=== PATIENT | male | born 1950 | race Caucasian/White ===

== ENCOUNTER → 2017-02-06 | Outpatient (CLI) | payer MEDICARE ==
[~2017-02-06] MED LIST: REGADENOSON 0.4 MG/5 ML SYRINGE ONE
== END | disposition home or self-care (01) ==
LOC: CFH 07:30
PROVIDERS: ATTEND Internal Medicine Cardiovascular Disease
DX: I51.7 Cardiomegaly (principal); I65.23 Occlusion and stenosis of bilateral carotid arteries; I35.0 Nonrheumatic aortic (valve) stenosis; I10 Essential (primary) hypertension; E11.9 Type 2 diabetes mellitus without complications; Z82.49 Family history of ischemic heart disease and other diseases of the circulatory system
CPT/HCPCS: 93306; 93880; J2785

== ENCOUNTER 2017-02-27 10:48 | Observation (INO) | payer MEDICARE ==
[2017-02-26 10:40] VITALS: BP 122/80
[2017-02-26 11:16] LABS: HEMATOCRIT 46.5 % (39.2-51.8); HEMOGLOBIN 15.9 g/dL (13.7-18.0); WHITE BLOOD COUNT 10.4 x10^3/uL (3.4-10)
[2017-02-26 11:29] LABS: BLOOD UREA NITROGEN 17 mg/dL (7-18)
[~2017-02-27] VITALS: Ht 175.3 cm; Wt 97.8 kg
[~2017-02-27 10:48] MED LIST changes: +ASPI-621 PO; +DICL100G19 TP; +ESCI20TA PO; +ISOS60TA36 PO; +LISI1TAB7 PO; +METF500T27 PO; +METO50TA82 PO; +MULT-516 PO; +PANT40TA5 PO; -REGADENOSON 0.4 MG/5 ML SYRINGE ONE; +ROSU20TA PO; +TAMS-11 PO
[2017-02-27] MEDS ORDERED: LIDOCAINE 2%, 20ML ONE (13:12)
[2017-02-27] MEDS ORDERED: MIDAZOLAM 1 MG/ML, 5ML ONE (13:12)
[2017-02-27] MEDS ORDERED: FENTANYL PF 100 MCG/2ML ONE ×2 (13:12→13:58)
[2017-02-27] MEDS ORDERED: VERAPAMIL 2.5 MG/ML, 2ML ONE (13:22)
[2017-02-27] MEDS ORDERED: HEPARIN 1,000 UNITS/ML, 10ML ONE (13:22)
[2017-02-27] MEDS ORDERED: TICAGRELOR 90 MG TABLET ONE (13:48)
[2017-02-27] MEDS ORDERED: BIVALIRUDIN 250 MG ONE (13:49)
[2017-02-27 15:03] VITALS: BP 113/70
[2017-02-27] MEDS: SODIUM CHLORIDE 0.9% 1,000 ML IV SCH (18:12)
[2017-02-27 18:47] VITALS: BP 129/81
[2017-02-27] MEDS: TICAGRELOR 90 MG TABLET PO SCH (20:39)
[2017-02-27] MEDS: METOPROLOL TARTRATE 50 MG TABLET PO SCH (20:40)
[2017-02-27] MEDS ORDERED: ATORVASTATIN 40 MG TABLET PO SCH (21:00)
[2017-02-27] MEDS ORDERED: metFORMIN XR 500 MG TAB.ER.24H PO SCH (21:00)
[2017-02-27] MEDS ORDERED: TEMPLATE NON-FORMULARY MED. (Rosuvastatin Calcium** (Crestor**) 20 MG) PO SCH (21:00)
[2017-02-28 00:11] VITALS: BP 139/77
[2017-02-28] MEDS: SODIUM CHLORIDE 0.9% 1,000 ML IV SCH ×2 (01:59→09:19)
[2017-02-28 05:21] LABS: BLOOD UREA NITROGEN 20 mg/dL (7-18)
[2017-02-28 07:00] VITALS: BP 147/80
[2017-02-28] MEDS ORDERED: TICA90TA PO (08:12)
[2017-02-28] MEDS ORDERED: CITALOPRAM 20 MG TABLET PO SCH (09:00)
[2017-02-28] MEDS ORDERED: HYDROCHLOROTHIAZIDE 25 MG TABLET PO SCH (09:00)
[2017-02-28] MEDS ORDERED: TEMPLATE NON-FORMULARY MED. (Escitalopram Oxalate** 20 MG) PO SCH (09:00)
[2017-02-28] MEDS ORDERED: MULTIVITAMIN 1 TABLET PO SCH (09:00)
[2017-02-28] MEDS ORDERED: TAMSULOSIN 0.4 MG CAP.ER.24H PO SCH (09:00)
[2017-02-28] MEDS ORDERED: PANTOPROZOLE 40MG TABLET PO SCH (09:00)
[2017-02-28] MEDS ORDERED: LISINOPRIL 20 MG TABLET PO SCH (09:00)
[2017-02-28] MEDS ORDERED: ISOSORBIDE MONONITRATE ER 60 MG TABLET PO SCH (09:00)
[2017-02-28] MEDS ORDERED: TEMPLATE NON-FORMULARY MED. (Lisinopril/Hydrochlorothiazide** (Lisinopril-Hctz 20-25 Mg Ta PO SCH (09:00)
[2017-02-28] MEDS ORDERED: ASPIRIN 81 MG TABLET EC PO SCH ×2 (09:00)
[2017-02-28] MEDS: TICAGRELOR 90 MG TABLET PO SCH (09:18)
[2017-02-28] MEDS: METOPROLOL TARTRATE 50 MG TABLET PO SCH (09:19)
== END 2017-02-28 11:04 | disposition home or self-care (01) ==
LOC: CACL 10:48 → 5SO 15:11 → CACL 17:59 → 5SO 17:59 → DCLOUNGE 02-28 10:52
PROVIDERS: ADMIT Internal Medicine Cardiovascular Disease; ATTEND Internal Medicine Cardiovascular Disease
DX: I25.10 Atherosclerotic heart disease of native coronary artery without angina pectoris (principal); I10 Essential (primary) hypertension; E78.5 Hyperlipidemia, unspecified; E11.9 Type 2 diabetes mellitus without complications; E78.2 Mixed hyperlipidemia; R93.1 Abnormal findings on diagnostic imaging of heart and coronary circulation
CPT/HCPCS: 36415; 80048; 82040; 85025; 93458; 99156; 99157; C1725; C1769; C1874; C1894; C9600; G0378; J0583; J1644; J2250; J3010; J3490; Q9967

== ENCOUNTER 2017-03-03 04:09 | Inpatient (IN) | payer MEDICARE ==
[~2017-03-03] VITALS: Ht 175.3 cm; Wt 102.2 kg
[~2017-03-03 04:09] MED LIST changes: +TICA90TA PO
[2017-03-03] MEDS ORDERED: ASPIRIN 81 MG TABLET CHEW PO ONE (05:00)
[2017-03-03] MEDS ORDERED: SODIUM CHLORIDE FLUSH 10ML SYR IVF ONE (05:00)
[2017-03-03] MEDS ORDERED: ASPIRIN 81 MG TABLET CHEW ONE (05:05)
[2017-03-03] MEDS ORDERED: TICA90TA PO (05:21)
[2017-03-03 05:41] LABS: BLOOD UREA NITROGEN 17 mg/dL (7-18)
[2017-03-03 05:47] LABS: ASPARTATE AMINO TRANSFERASE 17 U/L (15-37)
[2017-03-03 05:52] LABS: IS PT STATUS REG ER OR PRE ER? YES
[2017-03-03 05:57] LABS: HEMATOCRIT 47.5 % (39.2-51.8); HEMOGLOBIN 16.1 g/dL (13.7-18.0)
[2017-03-03] MEDS ORDERED: HEPARIN 5,000 UNITS/ML, 1ML ONE (10:16)
[2017-03-03] MEDS ORDERED: HEPARIN 25,000 UNITS/500ML PMX 500 ML ONE (10:16)
[2017-03-03] MEDS: ASPIRIN 81 MG TABLET EC PO SCH (10:20)
[2017-03-03] MEDS ORDERED: HEPARIN 5,000 UNITS/ML, 1ML IV ONE ×2 (11:00→16:00)
[2017-03-03] MEDS ORDERED: HEPARIN 25,000 UNITS/500ML PMX 500 ML IV PRN ×2 (11:00→16:00)
[2017-03-03] MEDS ORDERED: HEPARIN 5,000 UNITS/ML, 1ML IV PRN (11:00)
[2017-03-03 11:45] LABS: IS PT STATUS REG ER OR PRE ER? YES
[2017-03-03] MEDS ORDERED: SODIUM CHLORIDE 0.9% 1,000 ML IV SCH (11:53)
[2017-03-03] MEDS ORDERED: BISACODYL 10 MG SUPP PR PRN (12:00)
[2017-03-03] MEDS ORDERED: ENALAPRILAT 1.25 MG/ML, 2ML IVPush PRN (12:00)
[2017-03-03] MEDS ORDERED: hydrALAzine 20 MG/ML, 1ML IVPush PRN (12:00)
[2017-03-03] MEDS ORDERED: morphine SULFATE 10 MG/ML, 1ML IVPush PRN (12:00)
[2017-03-03] MEDS ORDERED: ONDANSETRON 2MG/ML, 2ML IVPush PRN (12:00)
[2017-03-03] MEDS ORDERED: ACETAMINOPHEN 325 MG TABLET PO PRN (12:00)
[2017-03-03] MEDS ORDERED: POLYETHYLENE GLYCOL 17 GM PACKET PO PRN (12:00)
[2017-03-03] MEDS ORDERED: OXYcodone IR 5MG TABLET PO PRN (12:00)
[2017-03-03 15:17] VITALS: BP 129/76
[2017-03-03] MEDS: CITALOPRAM 20 MG TABLET PO SCH (15:26)
[2017-03-03] MEDS: TAMSULOSIN 0.4 MG CAP.ER.24H PO SCH (15:26)
[2017-03-03] MEDS: TICAGRELOR 90 MG TABLET PO SCH ×2 (15:27→20:49)
[2017-03-03 17:11] LABS: IS PT STATUS REG ER OR PRE ER? NO
[2017-03-03] MEDS: HEPARIN 5,000 UNITS/ML, 1ML IV PRN (17:28)
[2017-03-03 19:54] VITALS: BP 129/78
[2017-03-03] MEDS: METOPROLOL TARTRATE 50 MG TABLET PO SCH (20:48)
[2017-03-03] MEDS: ATORVASTATIN 40 MG TABLET PO SCH (20:48)
[2017-03-03] MEDS ORDERED: metFORMIN XR 500 MG TAB.ER.24H PO SCH (21:00)
[2017-03-04 00:17] LABS: IS PT STATUS REG ER OR PRE ER? NO
[2017-03-04] MEDS: HEPARIN 5,000 UNITS/ML, 1ML IV PRN (02:19)
[2017-03-04 02:41] VITALS: BP 130/84
[2017-03-04 05:16] LABS: HEMATOCRIT 45.7 % (39.2-51.8); HEMOGLOBIN 15.3 g/dL (13.7-18.0); WHITE BLOOD COUNT 8.9 x10^3/uL (3.4-10)
[2017-03-04 05:19] LABS: ASPARTATE AMINO TRANSFERASE 16 U/L (15-37); BLOOD UREA NITROGEN 19 mg/dL (7-18)
[2017-03-04 07:54] VITALS: BP 131/81
[2017-03-04] MEDS ORDERED: TEMPLATE NON-FORMULARY MED. (Lisinopril/Hydrochlorothiazide** (Lisinopril-Hctz 20-25 Mg Ta PO SCH (09:00)
[2017-03-04] MEDS: ASPIRIN 81 MG TABLET EC PO SCH (09:30)
[2017-03-04] MEDS: TICAGRELOR 90 MG TABLET PO SCH ×2 (09:30→21:08)
[2017-03-04] MEDS: CITALOPRAM 20 MG TABLET PO SCH (09:30)
[2017-03-04] MEDS: MULTIVITAMIN 1 TABLET PO SCH (09:31)
[2017-03-04] MEDS: SENNA/DOCUSATE TABLET PO SCH (09:31)
[2017-03-04] MEDS: TAMSULOSIN 0.4 MG CAP.ER.24H PO SCH (09:31)
[2017-03-04] MEDS: LISINOPRIL 10 MG TABLET PO SCH (09:31)
[2017-03-04] MEDS: METOPROLOL TARTRATE 50 MG TABLET PO SCH ×2 (09:31→21:08)
[2017-03-04] MEDS: INSULIN ASPART 100 UNITS/ML, PEN SQ-INSULIN SCH ×3 (11:00→21:00)
[2017-03-04 12:51] VITALS: BP 111/72
[2017-03-04] MEDS ORDERED: TICAGRELOR 90 MG TABLET ONE (18:05)
[2017-03-04] MEDS ORDERED: FENTANYL PF 100 MCG/2ML ONE (18:05)
[2017-03-04] MEDS ORDERED: MIDAZOLAM 1 MG/ML, 5ML ONE (18:05)
[2017-03-04] MEDS ORDERED: HEPARIN 1,000 UNITS/ML, 10ML ONE (18:05)
[2017-03-04] MEDS ORDERED: LIDOCAINE 2%, 20ML ONE (18:05)
[2017-03-04] MEDS ORDERED: NITROGLYCERIN 5 MG/ML, 10ML ONE (18:05)
[2017-03-04] MEDS ORDERED: VERAPAMIL 2.5 MG/ML, 2ML ONE (18:05)
[2017-03-04] MEDS ORDERED: BIVALIRUDIN 250 MG ONE (18:05)
[2017-03-04] MEDS: SODIUM CHLORIDE 0.9% 1,000 ML IV SCH (18:44)
[2017-03-04 20:11] VITALS: BP 112/70
[2017-03-04] MEDS: ATORVASTATIN 40 MG TABLET PO SCH (21:08)
[2017-03-05 02:20] VITALS: BP 111/72
[2017-03-05] MEDS: SODIUM CHLORIDE 0.9% 1,000 ML IV SCH ×2 (02:44→10:44)
[2017-03-05 05:52] LABS: HEMATOCRIT 42.9 % (39.2-51.8); HEMOGLOBIN 14.7 g/dL (13.7-18.0); WHITE BLOOD COUNT 9.5 x10^3/uL (3.4-10)
[2017-03-05 06:16] LABS: BLOOD UREA NITROGEN 21 mg/dL (7-18)
[2017-03-05 06:51] LABS: BLOOD UREA NITROGEN 21 mg/dL (7-18)
[2017-03-05] MEDS: INSULIN ASPART 100 UNITS/ML, PEN SQ-INSULIN SCH ×2 (07:00→11:00)
[2017-03-05 07:42] VITALS: BP 132/76
[2017-03-05] MEDS: SENNA/DOCUSATE TABLET PO SCH (09:00)
[2017-03-05] MEDS: LISINOPRIL 10 MG TABLET PO SCH (09:57)
[2017-03-05] MEDS: CITALOPRAM 20 MG TABLET PO SCH (09:58)
[2017-03-05] MEDS: MULTIVITAMIN 1 TABLET PO SCH (09:58)
[2017-03-05] MEDS: TICAGRELOR 90 MG TABLET PO SCH (09:58)
[2017-03-05] MEDS: ASPIRIN 81 MG TABLET EC PO SCH (09:59)
[2017-03-05] MEDS: METOPROLOL TARTRATE 50 MG TABLET PO SCH (10:00)
[2017-03-05] MEDS: TAMSULOSIN 0.4 MG CAP.ER.24H PO SCH (10:00)
[2017-03-05 12:40] VITALS: BP 125/72
== END 2017-03-05 14:23 | disposition home or self-care (01) | DRG 247 ==
LOC: ED 04:35 → EDIP 08:08 → 5SO 14:44
PROVIDERS: ADMIT Internal Medicine; ATTEND Internal Medicine
PROC: 027034Z Dilation of Coronary Artery, One Artery with Drug-eluting Intraluminal Device, Percutaneous Approach (ICD-10-PCS; principal; 2017-03-04)
PROC: 4A023N7 Measurement of Cardiac Sampling and Pressure, Left Heart, Percutaneous Approach (ICD-10-PCS; 2017-03-04)
PROC: B2111ZZ Fluoroscopy of Multiple Coronary Arteries using Low Osmolar Contrast (ICD-10-PCS; 2017-03-04)
DX: I25.110 Atherosclerotic heart disease of native coronary artery with unstable angina pectoris (principal); E11.51 Type 2 diabetes mellitus with diabetic peripheral angiopathy without gangrene; E78.00 Pure hypercholesterolemia, unspecified; E78.5 Hyperlipidemia, unspecified; F32.9 Major depressive disorder, single episode, unspecified; E66.9 Obesity, unspecified; Z68.33 Body mass index [BMI] 33.0-33.9, adult; I10 Essential (primary) hypertension; N40.0 Benign prostatic hyperplasia without lower urinary tract symptoms; Z79.82 Long term (current) use of aspirin; Z82.49 Family history of ischemic heart disease and other diseases of the circulatory system; Z87.891 Personal history of nicotine dependence; Z88.0 Allergy status to penicillin
CPT/HCPCS: 36415; 71010; 80048; 80053; 80061; 82040; 82306; 82607; 82962; 83036; 83735; 84439; 84443; 84484; 85025; 85379; 85520; 85610; 93005; 93306; 93458; 94660; 96365; 96366; 96375; 99156; C1760; C1769; C1894; C9600; J0583; J1644; J2250; J3010; J3490; C1725; C1874; C1887; J2270; J7030; Q9967

== ENCOUNTER → 2017-05-21 | Outpatient (CLI) | payer MEDICARE ==
[2017-05-21 12:44] LABS: CHLORIDE 108 mmol/L (98-107)
[2017-05-21 12:46] LABS: HEMOGLOBIN A1C 6.8 % (4.2-6.3)
[2017-05-21 12:52] LABS: ALANINE AMINOTRANSFERASE 22 U/L (12-78); ALBUMIN 3.7 g/dL (3.4-5.0); ALKALINE PHOSPHATASE 63 U/L (45-117); ANION GAP 7 mmol/L (5-15); BILIRUBIN,TOTAL 0.5 mg/dL (0.2-1.0); CALCIUM 8.3 mg/dL (8.5-10.1); CHOL/HDL RATIO 2.3; CHOLESTEROL, TOTAL 76 mg/dL (140-239); CREATININE 1.04 mg/dL (0.7-1.3); HDL CHOL % 43 % (26-37); HDL CHOLESTEROL (DIRECT) 33 mg/dL (40-60); LDL CHOLESTEROL,CALCULATED 18 mg/dL (54-169); LDL/HDL RATIO 0.5 (0.5-3.0); TOTAL PROTEIN 7.4 g/dL (6.4-8.2); TRIGLYCERIDES 124 mg/dL (50-200); VLDL CHOLESTEROL 25 mg/dL (0-25)
== END | disposition home or self-care (01) ==
LOC: CFH 10:06
PROVIDERS: ATTEND Internal Medicine Cardiovascular Disease
DX: I10 Essential (primary) hypertension (principal); E78.2 Mixed hyperlipidemia; E11.69 Type 2 diabetes mellitus with other specified complication
CPT/HCPCS: 36415; 80053; 80061; 82043; 82570; 83036

== ENCOUNTER → 2017-06-05 | Outpatient (CLI) | payer MEDICARE | END | disposition home or self-care (01) | LOC: CFH 12:24 | PROVIDERS: ATTEND Nurse Practitioner Family | DX: R05 Cough (principal) | CPT/HCPCS: 71046 ==

== ENCOUNTER → 2018-03-10 | Outpatient (CLI) | payer MEDICARE ==
[2018-03-10 18:38] LABS: BASOPHILS # (AUTO) 0.06 x10^3/uL (0-0.1); BASOPHILS % (AUTO) 1 % (0-1); EOSINOPHILS # (AUTO) 0.27 x10^3/uL (0-0.4); EOSINOPHILS % (AUTO) 3 % (1-7); LYMPHOCYTES # (AUTO) 3.07 x10^3/uL (1-3.4); LYMPHOCYTES % (AUTO) 33 % (22-44); MD NO; MEAN CORPUSCULAR HEMOGLOBIN 30.3 pg (27.5-34.5); MEAN CORPUSCULAR HGB CONC 33.7 g/dL (33.2-36.2); MEAN CORPUSCULAR VOLUME 90.1 fL (81-97); MEAN PLATELET VOLUME 10.1 fL (7.4-10.4); MONOCYTES # (AUTO) 0.87 x10^3/uL (0.2-0.8); MONOCYTES % (AUTO) 9 % (2-9); NEUTROPHILS # (AUTO) 4.98 x10^3/uL (1.8-6.8); NEUTROPHILS % (AUTO) 54 % (42-75); PLATELET COUNT 169 x10^3/uL (130-400); RED BLOOD COUNT 5.01 x10^6/uL (4.38-5.82)
== END | disposition home or self-care (01) ==
LOC: LAB 18:03
PROVIDERS: ATTEND Internal Medicine Cardiovascular Disease
DX: L03.90 Cellulitis, unspecified (principal)
CPT/HCPCS: 36415; 84550; 85025

== ENCOUNTER → 2018-08-26 | Outpatient (CLI) | payer MEDICARE ==
[~2018-08-26] MED LIST changes: -ASPI-621 PO; +ASPI81TA45 PO; -ROSU20TA PO; +ROSU20TA2 PO
[2018-08-26 12:59] LABS: BASOPHILS # (AUTO) 0.06 x10^3/uL (0-0.1); BASOPHILS % (AUTO) 1 % (0-1); EOSINOPHILS # (AUTO) 0.34 x10^3/uL (0-0.4); EOSINOPHILS % (AUTO) 5 % (1-7); LYMPHOCYTES # (AUTO) 1.97 x10^3/uL (1-3.4); LYMPHOCYTES % (AUTO) 30 % (22-44); MD NO; MEAN CORPUSCULAR HEMOGLOBIN 31.3 pg (27.5-34.5); MEAN CORPUSCULAR HGB CONC 34.4 g/dL (33.2-36.2); MEAN CORPUSCULAR VOLUME 91.2 fL (81-97); MEAN PLATELET VOLUME 11.1 fL (7.4-10.4); MONOCYTES # (AUTO) 0.49 x10^3/uL (0.2-0.8); MONOCYTES % (AUTO) 8 % (2-9); NEUTROPHILS # (AUTO) 3.66 x10^3/uL (1.8-6.8); NEUTROPHILS % (AUTO) 56 % (42-75); PLATELET COUNT 137 x10^3/uL (130-400); RED BLOOD COUNT 4.45 x10^6/uL (4.38-5.82)
[2018-08-26 13:01] LABS: % IRON SATURATION 30 % (20-55); IRON LEVEL 85 mcg/dL (65-175); TOTAL IRON BINDING CAPACITY 282 mcg/dL (250-450)
== END | disposition home or self-care (01) ==
LOC: CFH 10:13
PROVIDERS: ATTEND Internal Medicine Cardiovascular Disease
DX: I10 Essential (primary) hypertension (principal); I25.810 Atherosclerosis of coronary artery bypass graft(s) without angina pectoris; E78.2 Mixed hyperlipidemia; E78.5 Hyperlipidemia, unspecified; E11.9 Type 2 diabetes mellitus without complications
CPT/HCPCS: 36415; 83540; 83550; 85025

== ENCOUNTER 2019-02-24 08:20 | Outpatient (CLI) | payer MEDICARE ==
[~2019-02-24 08:20] MED LIST changes: +LISI1TAB20 PO; -LISI1TAB7 PO
[2019-02-24 13:27] LABS: HEMOGLOBIN A1C 7.4 % (4.2-6.3)
[2019-02-24 14:00] LABS: ALANINE AMINOTRANSFERASE 22 U/L (12-78); ALBUMIN 3.7 g/dL (3.4-5.0); ANION GAP 6 mmol/L (5-15); CALCIUM 8.2 mg/dL (8.5-10.1); CHLORIDE 107 mmol/L (98-107); CHOLESTEROL, TOTAL 91 mg/dL (140-239); CREATININE 1.27 mg/dL (0.7-1.3)
[2019-02-24 14:03] LABS: ALKALINE PHOSPHATASE 59 U/L (45-117); BILIRUBIN,TOTAL 0.4 mg/dL (0.2-1.0); CHOL/HDL RATIO 3.3; HDL CHOL % 31 % (26-37); HDL CHOLESTEROL (DIRECT) 28 mg/dL (40-60); LDL CHOLESTEROL,CALCULATED 38 mg/dL (54-169); LDL/HDL RATIO 1.4 (0.5-3.0); TRIGLYCERIDES 127 mg/dL (50-200); VLDL CHOLESTEROL 25 mg/dL (0-25)
== END 2019-02-24 23:59 | disposition home or self-care (01) ==
LOC: CFH 08:20
PROVIDERS: ATTEND Family Medicine
DX: E11.69 Type 2 diabetes mellitus with other specified complication (principal); Z83.3 Family history of diabetes mellitus; Z82.49 Family history of ischemic heart disease and other diseases of the circulatory system
CPT/HCPCS: 36415; 80053; 80061; 82043; 83036

== ENCOUNTER 2019-05-07 10:54 | Inpatient (IN) | payer MEDICARE ==
[~2019-05-07] VITALS: Ht 175.3 cm; Wt 100.3 kg
--- NOTE | 2019-05-07 11:45 | NUR ---
PIV PLACED FROM WHICH LABS WERE DRAWN
[2019-05-07 11:55] LABS: BASOPHILS # (AUTO) 0.05 x10^3/uL (0-0.1); BASOPHILS % (AUTO) 1 % (0-1); EOSINOPHILS # (AUTO) 0.48 x10^3/uL (0-0.4); EOSINOPHILS % (AUTO) 6 % (1-7); LYMPHOCYTES # (AUTO) 1.84 x10^3/uL (1-3.4); LYMPHOCYTES % (AUTO) 22 % (22-44); MD NO; MEAN CORPUSCULAR HEMOGLOBIN 30.2 pg (27.5-34.5); MEAN CORPUSCULAR HGB CONC 33.7 g/dL (33.2-36.2); MEAN CORPUSCULAR VOLUME 89.6 fL (81-97); MEAN PLATELET VOLUME 10.3 fL (7.4-10.4); MONOCYTES # (AUTO) 0.68 x10^3/uL (0.2-0.8); MONOCYTES % (AUTO) 8 % (2-9); NEUTROPHILS # (AUTO) 5.36 x10^3/uL (1.8-6.8); NEUTROPHILS % (AUTO) 64 % (42-75); PLATELET COUNT 150 x10^3/uL (130-400); RED BLOOD COUNT 4.78 x10^6/uL (4.38-5.82); RED CELL DISTRIBUTION WIDTH 12.9 % (9.4-14.8)
[2019-05-07] MEDS ORDERED: SODIUM CHLORIDE FLUSH 10ML SYR IVF ONE (12:00)
[2019-05-07 12:07] LABS: ALBUMIN 3.6 g/dL (3.4-5.0); ANION GAP 8 mmol/L (5-15); CALCIUM 8.6 mg/dL (8.5-10.1); CHLORIDE 104 mmol/L (98-107)
[2019-05-07 12:14] LABS: ALANINE AMINOTRANSFERASE 18 U/L (12-78); ALKALINE PHOSPHATASE 72 U/L (45-117); BILIRUBIN,TOTAL 0.5 mg/dL (0.2-1.0); CREATININE 1.24 mg/dL (0.7-1.3); TOTAL PROTEIN 7.4 g/dL (6.4-8.2); TROPONIN I < 0.015 ng/mL (0.000-0.045)
--- NOTE | 2019-05-07 13:01 | NUR ---
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
[2019-05-07] MEDS ORDERED: EZET10TA70 PO (14:11)
[2019-05-07] MEDS ORDERED: NITR0.4T28 SL (14:11)
[2019-05-07] MEDS ORDERED: ISOS120T4 PO (14:11)
--- NOTE | 2019-05-07 14:11 | NUR ---
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 QUIÑONES. PLAN TO BE NPO AT MIDNIGHT FOR STRESS TEST IN AM
[2019-05-07] MEDS ORDERED: OXYcodone IR 5MG TABLET PO PRN (14:30)
[2019-05-07] MEDS ORDERED: NITROGLYCERIN SINGLE TAB 0.4 MG SL PRN (14:30)
[2019-05-07] MEDS ORDERED: DICLOFENAC SODIUM HOMETP SCH (14:30)
[2019-05-07] MEDS ORDERED: ACETAMINOPHEN 325 MG TABLET PO PRN (14:30)
[2019-05-07] MEDS: HEPARIN 5,000 UNITS/ML, 1ML SQ SCH ×2 (14:30→20:37)
[2019-05-07] MEDS ORDERED: BISACODYL 10 MG SUPP PR PRN (14:30)
[2019-05-07] MEDS ORDERED: hydrALAzine 20 MG/ML, 1ML IVPush PRN (14:30)
[2019-05-07] MEDS ORDERED: POLYETHYLENE GLYCOL 17 GM PACKET PO PRN (14:30)
[2019-05-07] MEDS ORDERED: morphine SULFATE 10 MG/ML, 1ML IVPush PRN (14:30)
[2019-05-07] MEDS ORDERED: ONDANSETRON ODT 4 MG PO PRN (14:30)
[2019-05-07] MEDS ORDERED: PROMETHAZINE 25 MG/ML, 1ML IM PRN (14:30)
[2019-05-07] MEDS ORDERED: ONDANSETRON 2MG/ML, 2ML IVPush PRN (14:30)
[2019-05-07] MEDS ORDERED: DOCUSATE 100 MG CAPSULE PO PRN (14:30)
[2019-05-07] MEDS ORDERED: NITROGLYCERIN 0.4 MG BOTTLE (25 TABS) SL PRN (14:30)
[2019-05-07 14:47] LABS: FREE T4 (FREE THYROXINE) 0.99 ng/dL (0.76-1.46)
--- NOTE | 2019-05-07 15:48 | NUR ---
TRANSFER TO FLOOR AT 1545 VSS ON [employer] ATE ENTIRE CARDIAC TRAY FOR LUNCH
[2019-05-07] MEDS: INSULIN LISPRO 100 UNITS/ML, PEN SQ-INSULIN SCH ×2 (18:29→20:46)
[2019-05-07 18:45] LABS: TROPONIN I < 0.015 ng/mL (0.000-0.045)
[2019-05-07 19:53] VITALS: BP 150/75
[2019-05-07 19:57] VITALS: BP 143/78
[2019-05-07] MEDS: METOPROLOL TARTRATE 50 MG TABLET PO SCH (20:36)
[2019-05-07] MEDS ORDERED: TEMPLATE NON-FORMULARY MED. (Metformin Hcl** (Metformin Hcl Er**) 500 MG) PO SCH (21:00)
[2019-05-07] MEDS ORDERED: ATORVASTATIN 80 MG TABLET PO SCH (21:00)
[2019-05-07] MEDS ORDERED: ISOSORBIDE MONONITRATE ER 60 MG TABLET PO SCH (21:00)
[2019-05-07] MEDS ORDERED: SODIUM CHLORIDE 0.9% 1,000 ML IV SCH (21:00)
[2019-05-07] MEDS ORDERED: EZETIMIBE 10 MG TABLET PO SCH (21:00)
[2019-05-07 21:04] LABS: MICROSCOPIC NOT IND
[2019-05-07 21:07] LABS: CULTURE INDICATED? NO
[2019-05-07 21:22] LABS: TROPONIN I < 0.015 ng/mL (0.000-0.045)
[2019-05-08 00:53] VITALS: BP 115/66
[2019-05-08 05:03] LABS: BASOPHILS # (AUTO) 0.04 x10^3/uL (0-0.1); BASOPHILS % (AUTO) 1 % (0-1); EOSINOPHILS % (AUTO) 7 % (1-7); LYMPHOCYTES # (AUTO) 2.13 x10^3/uL (1-3.4); LYMPHOCYTES % (AUTO) 28 % (22-44); MD NO; MEAN CORPUSCULAR HEMOGLOBIN 30.1 pg (27.5-34.5); MEAN CORPUSCULAR HGB CONC 33.4 g/dL (33.2-36.2); MEAN PLATELET VOLUME 10.3 fL (7.4-10.4); MONOCYTES # (AUTO) 0.75 x10^3/uL (0.2-0.8); MONOCYTES % (AUTO) 10 % (2-9); NEUTROPHILS # (AUTO) 4.22 x10^3/uL (1.8-6.8); NEUTROPHILS % (AUTO) 55 % (42-75); PLATELET COUNT 137 x10^3/uL (130-400); RED BLOOD COUNT 4.44 x10^6/uL (4.38-5.82); RED CELL DISTRIBUTION WIDTH 12.6 % (9.4-14.8)
[2019-05-08 05:17] LABS: CHLORIDE 107 mmol/L (98-107)
[2019-05-08 05:25] LABS: ALANINE AMINOTRANSFERASE 16 U/L (12-78); ALBUMIN 3.3 g/dL (3.4-5.0); ALKALINE PHOSPHATASE 56 U/L (45-117); ANION GAP 5 mmol/L (5-15); BILIRUBIN,TOTAL 0.5 mg/dL (0.2-1.0); CALCIUM 8.6 mg/dL (8.5-10.1); CHOL/HDL RATIO 3.8; CHOLESTEROL, TOTAL 98 mg/dL (140-239); CREATININE 1.12 mg/dL (0.7-1.3); HDL CHOL % 27 % (26-37); HDL CHOLESTEROL (DIRECT) 26 mg/dL (40-60); LDL CHOLESTEROL,CALCULATED 31 mg/dL (54-169); LDL/HDL RATIO 1.2 (0.5-3.0); TOTAL PROTEIN 6.6 g/dL (6.4-8.2); TRIGLYCERIDES 207 mg/dL (50-200); VLDL CHOLESTEROL 41 mg/dL (0-25)
[2019-05-08] MEDS: HEPARIN 5,000 UNITS/ML, 1ML SQ SCH ×2 (05:58→14:30)
[2019-05-08] MEDS ORDERED: ASPIRIN 325 MG TABLET EC PO SCH (06:00)
[2019-05-08] MEDS: INSULIN LISPRO 100 UNITS/ML, PEN SQ-INSULIN SCH ×2 (07:00→11:00)
[2019-05-08 07:49] VITALS: BP 137/79
[2019-05-08] MEDS: METOPROLOL TARTRATE 50 MG TABLET PO SCH (08:05)
[2019-05-08] MEDS ORDERED: REGADENOSON 0.4 MG/5 ML SYRINGE ONE (08:53)
[2019-05-08] MEDS ORDERED: TAMSULOSIN 0.4 MG CAP.ER.24H PO SCH (09:00)
[2019-05-08] MEDS ORDERED: ESCITALOPRAM 10MG TABLET PO SCH (09:00)
[2019-05-08] MEDS ORDERED: TEMPLATE NON-FORMULARY MED. (Lisinopril/Hydrochlorothiazide** (Lisinopril-Hctz 20-25 Mg Ta PO SCH (09:00)
[2019-05-08] MEDS ORDERED: LISINOPRIL 20 MG TABLET PO SCH (09:00)
[2019-05-08] MEDS ORDERED: MULTIVITAMIN 1 TABLET PO SCH (09:00)
[2019-05-08] MEDS ORDERED: PANTOPROZOLE 40MG TABLET PO SCH (09:00)
[2019-05-08] MEDS ORDERED: HYDROCHLOROTHIAZIDE 25 MG TABLET PO SCH (09:00)
[2019-05-08 15:00] VITALS: BP 123/67
== END 2019-05-08 17:16 | disposition home or self-care (01) | DRG 206 ==
LOC: ED 12:17 → EDIP 12:40 → 5SO 16:04 → DCLOUNGE 05-08 16:57
PROVIDERS: ADMIT Emergency Medicine; ATTEND Internal Medicine
DX: M94.0 Chondrocostal junction syndrome [Tietze] (principal); I25.10 Atherosclerotic heart disease of native coronary artery without angina pectoris; E11.65 Type 2 diabetes mellitus with hyperglycemia; E78.00 Pure hypercholesterolemia, unspecified; G47.33 Obstructive sleep apnea (adult) (pediatric); I10 Essential (primary) hypertension; E78.5 Hyperlipidemia, unspecified; F32.9 Major depressive disorder, single episode, unspecified; K21.9 Gastro-esophageal reflux disease without esophagitis; N40.0 Benign prostatic hyperplasia without lower urinary tract symptoms; Z95.5 Presence of coronary angioplasty implant and graft; Z98.1 Arthrodesis status; Z88.0 Allergy status to penicillin; Z79.899 Other long term (current) drug therapy
CPT/HCPCS: 36415; 71045; 78452; 80053; 80061; 81003; 82962; 83036; 83735; 83880; 84439; 84443; 84484; 85025; 85379; 93005; 93017; 93306; 99285; G0378; J2785; A9502; C9898; J1815; J7030

== ENCOUNTER → 2019-06-09 | Outpatient (CLI) | payer MEDICARE ==
[~2019-06-09] MED LIST changes: +EZET10TA70 PO; +ISOS120T4 PO; +NITR0.4T28 SL
[2019-06-09 13:05] LABS: CHLORIDE 106 mmol/L (98-107)
[2019-06-09 13:15] LABS: ALANINE AMINOTRANSFERASE 24 U/L (12-78); ALBUMIN 3.9 g/dL (3.4-5.0); ALKALINE PHOSPHATASE 65 U/L (45-117); ANION GAP 8 mmol/L (5-15); BILIRUBIN,TOTAL 0.5 mg/dL (0.2-1.0); CALCIUM 8.4 mg/dL (8.5-10.1); CHOLESTEROL, TOTAL 90 mg/dL (140-239); CREATININE 1.17 mg/dL (0.7-1.3); HDL CHOL % 33 % (26-37); HDL CHOLESTEROL (DIRECT) 30 mg/dL (40-60); LDL CHOLESTEROL,CALCULATED 32 mg/dL (54-169); LDL/HDL RATIO 1.1 (0.5-3.0); TOTAL PROTEIN 7.2 g/dL (6.4-8.2); TRIGLYCERIDES 138 mg/dL (50-200); VLDL CHOLESTEROL 28 mg/dL (0-25)
== END | disposition home or self-care (01) ==
LOC: CFH 09:24
PROVIDERS: ATTEND Family Medicine
DX: E11.69 Type 2 diabetes mellitus with other specified complication (principal)
CPT/HCPCS: 36415; 80053; 80061; 82043; 83036

== ENCOUNTER 2019-09-18 07:54 | Outpatient (CLI) | payer MEDICARE ==
[2019-09-18 14:30] LABS: ALANINE AMINOTRANSFERASE 17 U/L (12-78); ALBUMIN 3.6 g/dL (3.4-5.0); ANION GAP 8 mmol/L (5-15); CALCIUM 8.5 mg/dL (8.5-10.1); CHLORIDE 109 mmol/L (98-107); CHOLESTEROL, TOTAL 93 mg/dL (140-239); CREATININE 1.15 mg/dL (0.7-1.3); TRIGLYCERIDES 125 mg/dL (50-200); VLDL CHOLESTEROL 25 mg/dL (0-25)
[2019-09-18 14:32] LABS: ALKALINE PHOSPHATASE 56 U/L (45-117); HDL CHOL % 33 % (26-37); HDL CHOLESTEROL (DIRECT) 31 mg/dL (40-60); LDL CHOLESTEROL,CALCULATED 37 mg/dL (54-169); LDL/HDL RATIO 1.2 (0.5-3.0)
== END 2019-09-18 23:59 | disposition home or self-care (01) ==
LOC: CFH 07:54
PROVIDERS: ATTEND Family Medicine
DX: E11.69 Type 2 diabetes mellitus with other specified complication (principal)
CPT/HCPCS: 36415; 80053; 80061; 82043; 83036

== ENCOUNTER 2019-12-10 21:36 | Observation (INO) | payer MEDICARE ==
[~2019-12-10] VITALS: Ht 175.3 cm; Wt 95.3 kg
[~2019-12-10 21:36] MED LIST changes: -PANT40TA5 PO; +PANT40TA6 PO
[2019-12-10] MEDS ORDERED: SODIUM CHLORIDE FLUSH 10ML SYR IVF ONE (22:00)
--- NOTE | 2019-12-10 22:20 | NUR ---
THIS IS A 69 YO MALE COMING IN WITH COMPLAINTS OF INTERMITTENT CHEST PAIN, HISTORY OF 5 ID W/STENT PLACEMENTS. INTERMITTENT WITH MOVEMENT, STARTED ON SATURDAY AFTER BEING ACTIVE. SKIN IS CLAMMY TO TOUCH. PATIENT STATES THAT THIS PAIN IS SIMILAR TO THE LAST ID. HAS NITRO AT HOME, DID NOT TAKE ANY PRIOR TO ARRIVAL. PATIENT STATES HIS PAIN HAS RESOLVED WITH REST IN ROOM. 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 VSS, NADN. PIV PLACED, LABS DRAWN AND SENT TO LAB. CALL LIGHT IN REACH. BASKETBALL REFEREE TO ROOM
[2019-12-10 22:23] LABS: BASOPHILS # (AUTO) 0.08 x10^3/uL (0-0.1); BASOPHILS % (AUTO) 1 % (0-1); EOSINOPHILS # (AUTO) 0.27 x10^3/uL (0-0.4); EOSINOPHILS % (AUTO) 3 % (1-7); LYMPHOCYTES # (AUTO) 2.48 x10^3/uL (1-3.4); LYMPHOCYTES % (AUTO) 30 % (22-44); MD NO; MEAN CORPUSCULAR HEMOGLOBIN 30.1 pg (27.5-34.5); MEAN CORPUSCULAR VOLUME 91.4 fL (81-97); MEAN PLATELET VOLUME 10.5 fL (7.4-10.4); MONOCYTES # (AUTO) 0.76 x10^3/uL (0.2-0.8); MONOCYTES % (AUTO) 9 % (2-9); NEUTROPHILS # (AUTO) 4.76 x10^3/uL (1.8-6.8); NEUTROPHILS % (AUTO) 57 % (42-75); PLATELET COUNT 151 x10^3/uL (130-400); RED BLOOD COUNT 4.77 x10^6/uL (4.38-5.82); RED CELL DISTRIBUTION WIDTH 13.2 % (9.4-14.8)
[2019-12-10 22:32] LABS: ALANINE AMINOTRANSFERASE 19 U/L (12-78); ALBUMIN 3.9 g/dL (3.4-5.0); ANION GAP 7 mmol/L (5-15); CALCIUM 8.8 mg/dL (8.5-10.1); CHLORIDE 107 mmol/L (98-107); CREATININE 1.46 mg/dL (0.7-1.3)
[2019-12-10 22:36] LABS: ALKALINE PHOSPHATASE 58 U/L (45-117); BILIRUBIN,TOTAL 0.6 mg/dL (0.2-1.0); TOTAL PROTEIN 7.4 g/dL (6.4-8.2); TROPONIN I < 0.015 ng/mL (0.000-0.045)
--- NOTE | 2019-12-10 22:58 | NUR ---
PATIENT RESTING ON GURNEY, RESPIRATIONS EVEN AND UNLABORED. VSS, NADN. CALL LIGHT IN REACH. ALL RESULTS BACK, PATIENT UP FOR RECHECK
[2019-12-10] MEDS ORDERED: NITROGLYCERIN SINGLE TAB 0.4 MG SL PRN (23:30)
[2019-12-10] MEDS ORDERED: morphine SULFATE 10 MG/ML, 1ML IVPush PRN (23:30)
[2019-12-10] MEDS ORDERED: TEMPLATE NON-FORMULARY MED. (Diclofenac Sodium (Voltaren) 1 APPLIC) TP SCH (23:30)
[2019-12-10] MEDS ORDERED: ONDANSETRON ODT 4 MG PO PRN (23:30)
[2019-12-10] MEDS ORDERED: BISACODYL 10 MG SUPP PR PRN (23:30)
[2019-12-10] MEDS ORDERED: ACETAMINOPHEN 325 MG TABLET PO PRN (23:30)
[2019-12-10] MEDS ORDERED: POLYETHYLENE GLYCOL 17 GM PACKET PO PRN (23:30)
[2019-12-10] MEDS: INSULIN LISPRO 100 UNITS/ML, PEN SQ-INSULIN SCH (23:30)
--- NOTE | 2019-12-10 23:45 | NUR ---
REPORT GIVEN TO LUCIE ROSAS. PLAN OF CARE DISCUSSED
[2019-12-11 00:34] VITALS: BP 142/70
[2019-12-11] MEDS ORDERED: CLOP75TA PO (01:07)
[2019-12-11] MEDS ORDERED: LISI1TAB39 PO (01:07)
[2019-12-11] MEDS: EZETIMIBE 10 MG TABLET PO SCH ×2 (01:54→21:42)
[2019-12-11] MEDS: SODIUM CHLORIDE FLUSH 10ML SYR IVF SCH ×3 (01:54→21:42)
[2019-12-11] MEDS: HEPARIN 5,000 UNITS/ML, 1ML SQ SCH ×3 (01:54→21:40)
[2019-12-11 05:27] LABS: TROPONIN I < 0.015 ng/mL (0.000-0.045)
[2019-12-11] MEDS: ASPIRIN 81 MG TABLET EC PO SCH (06:50)
[2019-12-11] MEDS: INSULIN LISPRO 100 UNITS/ML, PEN SQ-INSULIN SCH ×4 (07:00→21:42)
[2019-12-11 07:08] LABS: ANION GAP 6 mmol/L (5-15); CALCIUM 8.7 mg/dL (8.5-10.1); CHLORIDE 108 mmol/L (98-107); CHOLESTEROL, TOTAL 83 mg/dL (140-239); CREATININE 1.18 mg/dL (0.7-1.3); TRIGLYCERIDES 152 mg/dL (50-200); VLDL CHOLESTEROL 30 mg/dL (0-25)
[2019-12-11 07:10] LABS: CHOL/HDL RATIO 2.5; HDL CHOL % 40 % (26-37); HDL CHOLESTEROL (DIRECT) 33 mg/dL (40-60); LDL CHOLESTEROL,CALCULATED 20 mg/dL (54-169); LDL/HDL RATIO 0.6 (0.5-3.0)
[2019-12-11] MEDS: ESCITALOPRAM 10MG TABLET PO SCH (09:00)
[2019-12-11] MEDS: SENNA/DOCUSATE TABLET PO SCH (09:00)
[2019-12-11] MEDS: TAMSULOSIN 0.4 MG CAP.ER.24H PO SCH (09:00)
[2019-12-11] MEDS: LISINOPRIL 20 MG TABLET PO SCH (09:00)
[2019-12-11] MEDS: MULTIVITAMIN 1 TABLET PO SCH (09:00)
[2019-12-11] MEDS: PANTOPRAZOLE 40MG TABLET PO SCH (09:00)
[2019-12-11] MEDS: HYDROCHLOROTHIAZIDE 25 MG TABLET PO SCH (09:00)
[2019-12-11] MEDS: METOPROLOL TARTRATE 50 MG TAB PO SCH ×2 (09:00→21:41)
[2019-12-11 09:03] VITALS: BP 151/87
[2019-12-11] MEDS ORDERED: POTASSIUM CHLORIDE 20 MEQ TAB.ER.PRT PO ONE (10:00)
[2019-12-11 10:52] VITALS: BP 147/81
[2019-12-11 11:01] LABS: TROPONIN I < 0.015 ng/mL (0.000-0.045)
[2019-12-11 12:16] VITALS: BP 137/78
[2019-12-11] MEDS ORDERED: TICAGRELOR 90 MG TABLET ONE (13:31)
[2019-12-11] MEDS ORDERED: LIDOCAINE-MPF 1%, 5ML ONE (13:31)
[2019-12-11] MEDS ORDERED: BIVALIRUDIN 250 MG ONE (13:31)
[2019-12-11] MEDS ORDERED: MIDAZOLAM 1 MG/ML, 5ML ONE (13:31)
[2019-12-11] MEDS ORDERED: FENTANYL PF 100 MCG/2ML ONE (13:31)
[2019-12-11] MEDS ORDERED: VERAPAMIL 2.5 MG/ML, 2ML ONE (13:31)
[2019-12-11] MEDS ORDERED: HEPARIN 1,000 UNITS/ML, 10ML ONE (13:32)
[2019-12-11] MEDS ORDERED: ATORVASTATIN 80 MG TABLET PO SCH (21:00)
[2019-12-11] MEDS ORDERED: ISOSORBIDE MONONITRATE ER 60 MG TABLET PO SCH (21:00)
[2019-12-11] MEDS ORDERED: EZETIMIBE 10 MG TABLET PO SCH (21:00)
[2019-12-11 21:21] VITALS: BP 131/65
[2019-12-12 02:26] VITALS: BP 131/76
[2019-12-12] MEDS: HEPARIN 5,000 UNITS/ML, 1ML SQ SCH ×2 (05:53→13:00)
[2019-12-12] MEDS: ASPIRIN 81 MG TABLET EC PO SCH (05:53)
[2019-12-12 06:31] VITALS: BP 131/75
[2019-12-12] MEDS: INSULIN LISPRO 100 UNITS/ML, PEN SQ-INSULIN SCH ×2 (07:00→11:00)
[2019-12-12] MEDS: SODIUM CHLORIDE FLUSH 10ML SYR IVF SCH (09:00)
[2019-12-12] MEDS: SENNA/DOCUSATE TABLET PO SCH (09:00)
[2019-12-12 11:13] VITALS: BP 136/80
[2019-12-12] MEDS: ESCITALOPRAM 10MG TABLET PO SCH (11:16)
[2019-12-12] MEDS: PANTOPRAZOLE 40MG TABLET PO SCH (11:16)
[2019-12-12] MEDS: MULTIVITAMIN 1 TABLET PO SCH (11:17)
[2019-12-12] MEDS: TAMSULOSIN 0.4 MG CAP.ER.24H PO SCH (11:17)
[2019-12-12] MEDS: HYDROCHLOROTHIAZIDE 25 MG TABLET PO SCH (11:18)
[2019-12-12] MEDS: METOPROLOL TARTRATE 50 MG TAB PO SCH (11:18)
[2019-12-12] MEDS: LISINOPRIL 20 MG TABLET PO SCH (11:19)
[2019-12-12 12:30] VITALS: BP 139/76
== END 2019-12-12 15:12 | disposition home or self-care (01) ==
LOC: ED 23:31 → EDIP 12-11 00:06 → INTOOBSV 12-11 00:06 → 5SO 12-11 00:10 → DCLOUNGE 12-12 15:03
PROVIDERS: ADMIT Internal Medicine; ATTEND Internal Medicine
DX: R07.9 Chest pain, unspecified (principal); E78.5 Hyperlipidemia, unspecified; E78.00 Pure hypercholesterolemia, unspecified; E87.6 Hypokalemia; E66.9 Obesity, unspecified; F32.9 Major depressive disorder, single episode, unspecified; F41.9 Anxiety disorder, unspecified; I10 Essential (primary) hypertension; I25.119 Atherosclerotic heart disease of native coronary artery with unspecified angina pectoris; E11.51 Type 2 diabetes mellitus with diabetic peripheral angiopathy without gangrene; I25.2 Old myocardial infarction; N17.9 Acute kidney failure, unspecified; K21.9 Gastro-esophageal reflux disease without esophagitis; Z79.84 Long term (current) use of oral hypoglycemic drugs; Z79.899 Other long term (current) drug therapy; Z95.5 Presence of coronary angioplasty implant and graft; Z98.1 Arthrodesis status; Z87.891 Personal history of nicotine dependence; N40.0 Benign prostatic hyperplasia without lower urinary tract symptoms
CPT/HCPCS: 36415; 71045; 80048; 80053; 80061; 82962; 83036; 84484; 85025; 93005; 93458; 96372; 99156; 99285; C1769; C1894; G0378; J1644; J2250; J3010; Q9967; J0583

== ENCOUNTER → 2019-12-18 | Outpatient (CLI) | payer MEDICARE ==
[~2019-12-18] MED LIST changes: +CLOP75TA PO; +LISI1TAB39 PO
[2019-12-18 13:11] LABS: CHLORIDE 109 mmol/L (98-107)
[2019-12-18 13:24] LABS: ALANINE AMINOTRANSFERASE 19 U/L (12-78); ALBUMIN 3.8 g/dL (3.4-5.0); ALKALINE PHOSPHATASE 61 U/L (45-117); ANION GAP 4 mmol/L (5-15); BILIRUBIN,TOTAL 0.5 mg/dL (0.2-1.0); CHOL/HDL RATIO 2.6; CHOLESTEROL, TOTAL 89 mg/dL (140-239); CREATININE 0.95 mg/dL (0.7-1.3); HDL CHOL % 38 % (26-37); HDL CHOLESTEROL (DIRECT) 34 mg/dL (40-60); LDL CHOLESTEROL,CALCULATED 30 mg/dL (54-169); LDL/HDL RATIO 0.9 (0.5-3.0); TOTAL PROTEIN 7.2 g/dL (6.4-8.2); TRIGLYCERIDES 125 mg/dL (50-200); VLDL CHOLESTEROL 25 mg/dL (0-25)
== END | disposition home or self-care (01) ==
LOC: CFH 09:38
PROVIDERS: ATTEND Family Medicine
DX: E11.69 Type 2 diabetes mellitus with other specified complication (principal)
CPT/HCPCS: 36415; 80053; 80061; 82043; 83036

== ENCOUNTER → 2020-01-08 | Outpatient (CLI) | payer MEDICARE | END | disposition home or self-care (01) | LOC: CVU 08:53 | PROVIDERS: ATTEND Physician Assistant Medical | DX: I70.201 Unspecified atherosclerosis of native arteries of extremities, right leg (principal); Z98.890 Other specified postprocedural states | CPT/HCPCS: 93931 ==

== ENCOUNTER 2021-01-03 09:49 | Outpatient (CLI) | payer MEDICARE ==
[~2021-01-03 09:49] MED LIST changes: -ESCI20TA PO; +ESCI20TA8 PO
[2021-01-03 10:20] LABS: ALANINE AMINOTRANSFERASE 28 U/L (12-78); ALBUMIN 3.8 g/dL (3.4-5.0); ANION GAP 5 mmol/L (5-15); CALCIUM 8.9 mg/dL (8.5-10.1); CHLORIDE 107 mmol/L (98-107); CHOLESTEROL, TOTAL 88 mg/dL (140-239); CREATININE 1.15 mg/dL (0.7-1.3); TRIGLYCERIDES 190 mg/dL (50-200); VLDL CHOLESTEROL 38 mg/dL (0-25)
[2021-01-03 10:22] LABS: ALKALINE PHOSPHATASE 63 U/L (45-117); BILIRUBIN,TOTAL 0.4 mg/dL (0.2-1.0); CHOL/HDL RATIO 2.8; HDL CHOL % 36 % (26-37); HDL CHOLESTEROL (DIRECT) 32 mg/dL (40-60); LDL CHOLESTEROL,CALCULATED 18 mg/dL (54-169); LDL/HDL RATIO 0.6 (0.5-3.0); TOTAL PROTEIN 7.3 g/dL (6.4-8.2)
== END 2021-01-03 23:59 | disposition home or self-care (01) ==
LOC: LAB 09:49
PROVIDERS: ATTEND Family Medicine
DX: E11.69 Type 2 diabetes mellitus with other specified complication (principal)
CPT/HCPCS: 36415; 80053; 80061; 82043; 83036